=== PATIENT | male | born 1950 | race Caucasian/White ===

== ENCOUNTER 2021-12-02 14:55 | Emergency (ER) | payer MEDICARE ==
[~2021-12-02 14:55] MED LIST: Iopamidol 370 76% 100 ML VIAL ONE
[2021-12-02 15:53] LABS: #Basophils 0.1 thou/uL (0.0-0.2); #Eosinphils 0.3 thou/uL (0.0-0.7); %Basophils 0.5 % (0.0-1.0); %Eosinophils 1.8 % (0.0-10.0); %Monocytes 6.8 % (0.0-10.0); %Neutrophils 76.8 % (42.0-75.0); Hemoglobin 12.8 g/dL (14.0-18.0); Mean Corpuscular HGB CONC 32.6 g/dL (32.0-36.0); Mean Corpuscular Hemoglobin 27.6 pg (27.0-31.0); Mean Corpuscular Volume 84.6 fL (78.0-98.0); Mean Platelet Volume 6.2 fL (7.4-10.4); Platelet Count 339 thou/uL (130-400); RBC Distribution Width 12.1 % (11.5-14.5); Red Blood Cell (RBC) Count 4.63 mill/uL (4.70-6.10); White Blood Cell (WBC) Count 14.4 thou/uL (4.8-10.8)
[2021-12-02 16:08] LABS: ALT (SGPT) 26 U/L (8-55); AST (SGOT) 24 U/L (5-34); Albumin 3.7 g/dL (3.4-4.8); Alkaline Phosphatase 135 U/L (40-110); Anion Gap 14 mmol/L (10-20); BUN (Urea Nitrogen) 12 mg/dL (8.4-25.7); Bilirubin, Total 0.3 mg/dL (0.2-1.2); Calc. Creatinine Clearance 0 mL/min (70-130); Calcium 9.4 mg/dL (7.8-10.44); Carbon Dioxide 24 mmol/L (23-31); Chloride 100 mmol/L (98-107); Globulin 3.6 g/dL (2.4-3.5); Glucose 349 mg/dL (80-115); Magnesium 1.9 mg/dL (1.6-2.6); Potassium 4.3 mmol/L (3.5-5.1); Protein, Total 7.3 g/dL (5.8-8.1); Sodium 134 mmol/L (136-145)
[2021-12-02] MEDS ORDERED: Morphine 4 MG/ML VIAL ONE ×2 (16:13→18:07)
[2021-12-02] MEDS ORDERED: Clindamycin/D5W 600 mg/50 ml Premix Bag ONE (18:07)
[2021-12-02 19:56] LABS: SARS-CoV-2 NAA Rapid Test Not Detected (NotDetected)
== END 2021-12-02 21:44 | disposition short-term general hospital (02) ==
LOC: MADERS 14:55
DX: K04.7 Periapical abscess without sinus (principal); L02.11 Cutaneous abscess of neck; L03.211 Cellulitis of face; F17.220 Nicotine dependence, chewing tobacco, uncomplicated
CPT/HCPCS: 70492; 80053; 83605; 83735; 85025; 96365; 96367; 96375; 96376; 99284; U0002; J1956; J2270; J3490; Q9967